=== PATIENT | female | born 1955 | race Caucasian/White ===

== ENCOUNTER → 2019-07-04 11:23 | Outpatient (CLI) | payer MEDICARE, SELFPAY ==
[2019-07-04 12:45] LABS: Blood Urea Nitrogen 17 mg/dl (7-17); Estimated Glomerular Filt Rate 72 ml/min (>60); GFR (African American) 88 ML/MIN (>60)
== END ==
PROVIDERS: Visit Provider Internal Medicine Gastroenterology
DX: R10.12 Left upper quadrant pain (principal); K30 Functional dyspepsia
CPT/HCPCS: 36415; 82565; 84520

== ENCOUNTER → 2019-07-08 09:51 | Outpatient (CLI) | payer MEDICARE, SELFPAY ==
--- NOTE | 2019-07-08 09:56 | CT_ITS ---
PROCEDURE: CT ABDOMEN PELVIS W CON CLINICAL INDICATION: DYSPEPSIA, LUQ PAIN COMPARISON: No exams were available for comparison TECHNIQUE: IV Contrast: 75ML OPTIRAY 350 Oral Contrast 450ml Redicat Axial images obtained with sagittal and coronal reformats. All CT scans at the facility use one or more dose reduction, viz: automated exposure control, ma/kV adjustment per patient size (including targeted exams where dose is matched to indication, i.e. head), or iterative reconstruction technique. FINDINGS: LOWER THORAX: There is pericardial thickening greater along the posterior left lateral aspect measuring up to 18 mm consistent with pericardial effusion ABDOMEN & PELVIS: There is heterogeneous density of the liver with mostly decreased attenuation involving the anterior segment of the right hepatic lobe, in the central aspect of the left hepatic lobe bordering the falciform ligament region. This may only be due to diffuse heterogeneous fatty liver infiltration. However, in addition there are multiple early enhancing liver lesions. At least 5 lesions are present the largest in the right hepatic lobe measuring up to 2.1 cm. These are somewhat less apparent on the 5 minutes delayed images. The spleen and pancreas are unremarkable. There is nodularity of the left adrenal gland which is nonspecific. There is a small 4 mm area of decreased attenuation within the left adrenal gland which may represent an adenoma. There is a nonobstructing 4 mm stone in the lower pole of the right kidney. No ureteral calculi. No hydronephrosis. There is a in duodenal diverticulum projecting medially. There has been a prior appendectomy. There is diverticulosis of the descending and sigmoid colon. No evidence of diverticulitis. The right there is a 2 cm right ovarian cyst. There is sclerosis involving the central and right aspect of the L2 vertebral body. Small area of sclerosis involves the T11 and T12 vertebral body centrally. IMPRESSION: 1. Multiple enhancing hepatic nodules. Differential diagnosis includes metastatic disease or cavernous hemangiomas. Suggest MRI with hemangioma protocol for further evaluation. 2. Blastic lesion involving the L2, T12, and T11 vertebral bodies suspicious for metastatic disease. 3. Suggest chest x-ray also for further evaluation in this patient the which is a smoker with possible metastatic disease Dictated by: Amrik Woody MD 07/10/2019 09:29 Electronically signed by Amrik Woody MD in [place] 07/10/2019 09:29
--- NOTE | 2019-07-08 10:50 | [facility].ITSHM ---
Current Home Medications as stated by this patient Susi Polk or quality control representative. []METFORMIN 500 MG METOPROLOL 100 MG FUROSEMIDE 40 MG ATORVASTATIN 40 MG LEVOTHYROXINE 200 MG LOSARTIN 50 MG POTASSIUM 250 MG ASA COQIO 100 MG
== END ==
PROVIDERS: PCP Nurse Practitioner Family; Visit Provider Internal Medicine Gastroenterology
DX: R10.12 Left upper quadrant pain (principal); K30 Functional dyspepsia
CPT/HCPCS: 74177; Q9967

== ENCOUNTER → 2019-07-16 09:02 | Outpatient (CLI) | payer MEDICARE, SELFPAY ==
--- NOTE | 2019-07-16 09:14 | XR_ITS ---
PROCEDURE: XR CHEST 2V CLINICAL HISTORY: COPD, AFIB, CHF, LIVER NODULE COMPARISON: CT ABDOMEN PELVIS W CON from 07/08/2019 FINDINGS: There is cardiomegaly without failure Mild atelectatic or fibrotic changes in the left lung base. Minimal blunting of the CP angles on both sides. Upper lobes are clear. No suspicious masses are evident. No acute bony abnormalities. IMPRESSION: Cardiomegaly with mild left basilar atelectasis or fibrotic change and minimal blunting of the CP angles on both sides Dictated by: Amrik Woody MD 07/16/2019 09:42 Electronically signed by Amrik Woody MD in [facility] 07/16/2019 09:42
== END ==
PROVIDERS: PCP Nurse Practitioner Family; Visit Provider Internal Medicine Gastroenterology
DX: K76.89 Other specified diseases of liver (principal)
CPT/HCPCS: 71046

== ENCOUNTER → 2019-11-03 13:04 | Outpatient (POV) | payer MEDICARE, SELFPAY | PROVIDERS: Visit Provider Nurse Practitioner Family | DX: Z00.00 Encounter for general adult medical examination without abnormal findings (principal) ==

== ENCOUNTER → 2020-03-08 10:21 | Outpatient (POV) | payer MEDICARE, SELFPAY | PROVIDERS: Visit Provider Nurse Practitioner Family | DX: Z00.00 Encounter for general adult medical examination without abnormal findings (principal) ==